=== PATIENT | male | born 1985 | race Caucasian/White ===

== ENCOUNTER 2020-06-06 13:41 | Emergency (ER) | payer OTHER, SELFPAY ==
[2020-06-06] VITALS (30 sets, daily range): BP systolic 123–181; BP diastolic 71–107; PULSE 91–116; RESP 9–19; O2SAT 95–100
--- NOTE | ~2020-06-06 | XR_ITS ---
EXAMINATION: XR chest 2V DATE: 06/06/2020 14:19 INDICATION: Chest pressure. TECHNIQUE: Frontal and lateral views of the chest were obtained. COMPARISON: None. FINDINGS: The chest demonstrates clear lungs without pneumonia, pleural effusion, or pneumothorax. Th e heart size is normal. IMPRESSION: 1. No acute cardiopulmonary disease. Reviewed, dictated and finalized at location A.
--- NOTE | 2020-06-06 13:50 | PC.NURSE ---
patient brought back to ED room H2 with c/o chest pressure. see triage notes. resting on stretcher. cardiac protocol started. 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 oriented. assessments documented.
--- NOTE | 2020-06-06 13:56 | ECG_ITS ---
Measurements Intervals [place] Rate: 107 P: 55 AK: 156 QRS: 31 QRSD: 80 T: 5 QT: 326 QTc: 435 Interpretive Statements SINUS TACHYCARDIA BORDERLINE ST-T WAVE ABNORMALITY- INFERIOR LEADS ABNORMAL ECG Electronically Signed On 06-06-2020 14:00:39 CDT by Kt Hart D.O.
[2020-06-06 14:08] LABS: Basophils Percent Auto 0.6 % (0.2-1.2); Eosinophils Percent Auto 0.2 % (0-4.4); Hematocrit 46.3 % (42.0-52.0); Hemoglobin 15.8 g/dL (14.0-18.0); Immature Granulocyte Absolute 0.05 K/mm3 (0.00-0.031); Immature Granulocyte Percent A 0.8 % (0-0.5); Lymphocytes Percent Auto 22.6 % (18.3-44.2); Mean Corpuscular HGB Conc 34.1 g/dl (32-36); Mean Corpuscular Hemoglobin 29.7 pg (26-34); Mean Platelet Volume 11.2 fl (7.4-10.4); Monocytes Absolute Auto 0.6 K/mm3 (0.1-0.6); Monocytes Percent Auto 9.6 % (2.6-8.5); Neutrophils Absolute Auto 4.4 K/mm3 (1.3-6.7); Neutrophils Percent Auto 66.2 % (45.5-73.1); Platelet Count Result 214 k/mm3 (150-375); Red Blood Count 5.32 M/mm3 (4.6-6.20); Red Cell Distribution Width 13.2 % (11.5-14.5); White Blood Count 6.6 K/mm3 (4.5-10.0)
[2020-06-06 14:20] LABS: Prothrombin Time 12.4 Seconds (11.1-14.7)
[2020-06-06 14:21] LABS: Anion Gap 9 mmol/L (8-16); Blood Urea Nitrogen 11 mg/dL (9-20); Calcium 9.6 mg/dL (8.4-10.2); Carbon Dioxide 30 mmol/L (22-30); Chloride 100 mmol/L (98-107); Estimated Glomerular Filt Rate > 60; Glucose 119 mg/dL (75-110); Partial Thromboplastin Time 24.4 SECONDS (22.3-36.8); Potassium 3.9 mmol/L (3.4-5.0); Sodium 139 mmol/L (137-145)
[2020-06-06 14:32] LABS: Troponin I < 0.012 ng/mL (0.000-0.034)
[2020-06-06] MEDS: ASPIRIN 81 MG CHEWABLE TABLET 324 MG PO (15:02)
--- NOTE | 2020-06-06 15:10 | ED.CHESTPAIN ---
HPI - Chest Pain General Chief Complaint: Chest Pain Stated Complaint: CHEST PAIN Time Seen by Provider: 06/06/20 14:46 Source: patient Mode of arrival: ambulatory Limitations: no limitations History of Present Illness HPI narrative: 34-year-old male No past medical history Complains of right eye twitching which then turned to the chest pain and has been happening daily for a week He went to [place] for the long weekend and reported that symptoms were still occurring after he came back and thought he should be checked out Nothing particularly makes him feel better or worse except possibly going up the stairs to his hotel room which she had to do because his does not like elevators, or when his mind is occupied with something else Routine activities do not make anything worse He said earlier today he felt better after taking a baby aspirin And he is a non-smoker Related Data Allergies Allergy/AdvReac Type Severity Reaction Status Date / Time Penicillins Allergy Unknown Hives / Verified 06/06/20 13:56 Red Face Review of Systems Review of Systems: All systems reviewed & are unremarkable except as noted in HPI and below Constitutional: Constitutional: Denies chills, Denies fatigue, Denies fever(s), Denies headache(s) and Denies weakness Eyes: Eyes: Denies change in vision and Denies other visual disturbances ENT: Denies headache(s), Denies epistaxis, Denies nasal congestion and Denies sore throat Cardiovascular: Cardiovascular: Reports chest pain, Denies leg edema, Denies palpitations and Denies dyspnea Respiratory: Respiratory: Denies cough, Denies dyspnea and Denies wheezing Gastrointestinal: Gastrointestinal: Denies abdominal pain, Denies diarrhea, Reports nausea and Denies vomiting Comments: He has some GERD/reflux symptoms particularly at night that sometimes he takes ranitidine for Genitourinary: Genitourinary: Denies hematuria, Denies dysuria and Denies urinary frequency Musculoskeletal: Musculoskeletal: Denies deformity, Denies arthralgias, Denies joint swelling, Denies muscle weakness and Denies numbness Integumentary/Breasts: Skin/Breast: Denies rash, Denies unusual bruising and Denies wounds Neurologic: Denies Abnormal speech present, Denies headache(s), Denies focal weakness, Denies numbness and Denies weakness Psychiatric: Psychiatric: Reports no additional psychiatric complaints Endocrine: Endocrine: Denies fatigue and Denies palpitations Hematologic/Lymphatic: Hematologic/Lymphatic: Denies easy bleeding and Denies easy bruising Allergic/Immunologic: Allergic/Immunologic: Denies wheezing Exam Const: General: no acute distress, well developed and awake Nutritional Appearance: well nourished Orientation/consciousness: patient oriented x3 (alert) Limitations: no limitations Other: Overweight HENMT: Head: normocephalic and atraumatic Ears: external ears normal General nose exam: No nasal discharge present and no epistaxis Face and sinus: face symmetric Eyes: Conjunctivae: conjunctivae normal Sclera: sclerae normal EOM: EOMs intact bilaterally Neck: Neck: normal visual inspection, supple and no JVD Chest: Chest palpation & inspection: deferred Resp: Effort & Inspection: normal respiratory effort Auscultation: clear to auscultation bilaterally, no rales, no rhonchi, no wheezes and other (BS =) Cardio: Rate: regular rate Rhythm: regular rhythm Heart sounds: no gallops and no murmurs GI: Inspection: normal to inspection and non-distended GI Palp: Yes Soft to palpation and No Tenderness to palpation present (GI) : General: Yes no CVA tenderness Back/Spine/Pelvis: Back: no CVA tenderness Thoracic/Lumbar Spine: thoracic and lumbar spine normal to inspection Skin: General skin exam: normal color and no rashes or lesions noted Neuro: General: patient oriented x3 (alert), moves all extremities and no focal motor deficits Cranial nerves: Yes facial symmetry Speech: normal spee
--- NOTE | 2020-06-06 15:15 | PC.NURSE ---
Called lab to add on lipid panel
[2020-06-06] MEDS: NITROGLYCERIN SL 0.4 MG TABLET SUBLINGUAL (15:19)
--- NOTE | 2020-06-06 15:20 | PC.NURSE ---
called lab to add on D Dimer
[2020-06-06 15:33] LABS: D Dimer 0.27 ug/mL (<0.48)
[2020-06-06 15:36] LABS: Cholesterol 196 mg/dL (0-200); HDL Direct 32 mg/dL; Triglycerides 256 mg/dL (<150)
[2020-06-06 15:47] LABS: LDL Cholesterol Direct 122 mg/dL
[2020-06-06] MEDS: LORazepam INJ (*CRX) 2 MG/ML VIAL 1 MG IV PUSH (15:57)
--- NOTE | 2020-06-06 17:15 | PC.NURSE ---
resting on stretcher. waiting for 2nd trop results.
[2020-06-06 17:25] LABS: Troponin I < 0.012 ng/mL (0.000-0.034)
== END 2020-06-06 18:29 | disposition home or self-care (01) ==
PROVIDERS: Emergency Medicine; Emergency Provider Emergency Medicine
DX: K21.9 Gastro-esophageal reflux disease without esophagitis (principal); R00.0 Tachycardia, unspecified; R94.31 Abnormal electrocardiogram [ECG] [EKG]
CPT/HCPCS: 36415; 71046; 80048; 80061; 84484; 85025; 85380; 85610; 85730; 93005; 96374; 99284; A9270; J2060